=== PATIENT | male | born 1965 | race Caucasian/White ===

== ENCOUNTER 2017-04-29 17:20 | Emergency (ER) | payer OTHER ==
[~2017-04-29] VITALS: Ht 175.3 cm; Wt 88.7 kg
[2017-04-29 17:22] VITALS: TEMP 36.8; Ht 175.3 cm; Wt 88.7 kg
[2017-04-29] MEDS ORDERED: SODIUM CHLORIDE 0.9% 1000ML 1,000 ML IV STA (17:38)
[2017-04-29 18:08] LABS: BASO % 0.3 %; BASO ABS # 0.02 K/uL (0-0.2); COMPLETE YES; EOS % 1.6 %; HEMATOCRIT 45.5 % (42-52); IG% 0.2 %; LYMPH % 28.7 %; LYMPH ABS # 1.77 K/uL (1.2-3.4); MEAN CELL VOLUME 93.4 fL (80-100); MEAN CORPUSCULAR HEMOGLOBIN 31.4 pg (25-34); MEAN CORPUSCULAR HGB CONC 33.6 g/dl (32-36); MEAN PLATELET VOLUME 11.2 fL (7.4-10.4); NEUT % 61.2 %; PLATELET COUNT 221 K/uL (130-400); RED BLOOD COUNT 4.87 M/uL (4.7-6.1); WHITE BLOOD COUNT 6.16 K/uL (4.8-10.8)
[2017-04-29 18:28] LABS: BUN/CREATININE RATIO 15.3 (10-20); CALCIUM 9.2 mg/dl (8.5-10.1); CREATININE 1.1 mg/dl (0.60-1.40); POTASSIUM 3.8 mmol/L (3.5-5.1)
[2017-04-29 18:35] LABS: URINE APPEARANCE CLEAR (CLEAR); URINE BILIRUBIN NEG (NEG); URINE COLOR DK YELLOW; URINE EPITHELIAL CELL AUTO 0-5 /lpf (0-5); URINE NITRITE NEG (NEG); UROBILINOGEN NEG (NEG); ZZUR CULT IF INDIC CLEAN CATCH NO
[2017-04-29 18:36] LABS: MANUAL MICROSCOPIC REQUIRED? NO; REVIEW REQ? NO
[2017-04-29] MEDS ORDERED: SIMV80TA2 PO (18:42)
[2017-04-29] MEDS ORDERED: CETI10TA10 PO (18:42)
[2017-04-29] MEDS ORDERED: FLUT0.15 INH (18:42)
--- NOTE | 2017-04-29 19:24 | DIAGNOSTIC IMAGING REPORT ---
TESTICULAR ULTRASOUND HISTORY: Left groin/scrotum swelling COMPARISON: None. FINDINGS: Right testis: 3.0 x 4.7 x 2.3 cm. There are no intratesticular masses. Normal color flow. No hydrocele. The epididymis is unremarkable. Left testis: 4.8 x 3.2 x 2.2 cm. There are no intratesticular masses. Normal color flow. Trace hydrocele. The epididymis is enlarged and hypervascular. IMPRESSION: 1. Normal bilateral testes. 2. The left epididymis is enlarged and hypervascular compared to the right. This favors a left-sided epididymitis. There is also a trace left hydrocele. Electronically signed by: Hernesto Wilson M.D. 04/29/2017 7:23 PM Dictated Date/Time: 04/29/2017 7:09 PM
--- NOTE | 2017-04-29 20:51 | DIAGNOSTIC IMAGING REPORT ---
ABDOMEN LIMITED (US) CLINICAL HISTORY: Left groin pain. Assess for hernia. COMPARISON STUDY: None. FINDINGS: No evidence for left inguinal hernia. No masses or fluid collections within the left groin. A few small left lymph node identified. IMPRESSION: No evidence for left inguinal hernia. Electronically signed by: Hernesto Wilson M.D. 04/29/2017 8:50 PM Dictated Date/Time: 04/29/2017 8:48 PM
[2017-04-29] MEDS ORDERED: LEVOFLOXACIN 250 MG TAB PO ONE (21:00)
[2017-04-29] MEDS ORDERED: LEVO-366 PO (21:01)
[2017-04-29 21:14] VITALS: BP 141/89; PULSE 75; O2SAT 98
--- NOTE | 2017-04-29 22:09 | EMERGENCY ROOM VISIT NOTE ---
History Report prepared by Nidai: Marah Isidro Under the Supervision of: Dr. Elgin Buckley D.O. First contact with patient: 17:25 Chief Complaint: TESTICULAR PAIN Stated Complaint: SWOLLEN LEFT TESTICLE AND GROIN DISCOMFORT History of Present Illness The patient is a 51 year old male who presents to the Emergency Room with complaints of persistent left testicle swelling starting yesterday evening. When he got home from work yesterday, he noticed that his left testicle was swollen. He did not have any discomfort throughout the day and had not realized that it had swollen. He applied ice which improved the swelling. Today when he returned home from work, he noticed that the swelling was back. He notes that he had similar swelling 20 years ago with varicocele. Today he started having pain in his left groin which he describes as a dull ache. He is also having pain in his left lower back. He notes that he did just start a new job with different chairs which have been causing him some back pain. The pain which started today seems different from this pain. He denies any fever, changes in bowel movement, dysuria, or abdominal pain. His last bowel movement was this afternoon. He notes that he has had 2 inguinal hernias in the past. This pain is different and feels like the pain he had after his hernia surgery and vasectomy. He denies any previous abdominal surgeries. He is sexually active with 1 partner. Source of History: patient Onset: yesterday evening Position: other (left testicle) Quality: other (swelling) Timing: other (persistent) Modifying Factors (Relieving): ice Associated Symptoms: + back pain, No fevers, No abdominal pain, No urinary symptoms Note: Pt reports left groin pain, change in bowel movement. Review of Systems See HPI for pertinent positives & negatives. A total of 10 systems reviewed and were otherwise negative. Past Medical & Surgical Medical Problems: (1) Varicocele Surgical Problems: (1) S/P vasectomy Family History No pertinent family history stated. Social History Smoking Status: Never Smoker Marital Status: Occupation Status: employed Current/Historical Medications Scheduled Levofloxacin (Levaquin), 500 MG PO DAILY Simvastatin (Zocor), 40 MG PO QPM Scheduled PRN Cetirizine Hcl (Zyrtec), 10 MG PO DAILY PRN for Allergy Symptoms Fluticasone Propionate (Nasal) (Flonase Allergy Relief), 2 SPRAYS INH DAILY PRN for Allergy Symptoms Allergies Coded Allergies: Sulfa Antibiotics (Verified Allergy, Intermediate, rash, 04/29/17) Uncoded Allergies: SEASONAL (Adverse Reaction, Unknown, runny nose, 04/29/17) Physical Exam Vital Signs Date Time Temp Pulse Resp B/P (MAP) Pulse Ox O2 Delivery O2 Flow Rate FiO2 04/29/17 21:14 75 18 141/89 98 04/29/17 20:25 78 18 143/93 99 Room Air 04/29/17 18:12 75 18 157/100 98 Room Air 04/29/17 17:22 36.8 88 18 171/111 99 Room Air Physical Exam GENERAL: sitting up in bed, alert, well appearing, well nourished, no distress, non-toxic EYE EXAM: normal conjunctiva OROPHARYNX: no exudate, no erythema, lips, buccal mucosa, and tongue normal and mucous membranes are moist NECK: supple, no nuchal rigidity, no adenopathy, non-tender LUNGS: Clear to auscultation. Normal chest wall mechanics HEART: no murmurs, S1 normal and S2 normal ABDOMEN: abdomen soft, non-tender, normo-active bowel sounds, no masses, no rebound or guarding. BACK: Back is symmetrical on inspection and there is no deformity, no midline tenderness, no CVA tenderness. : Fullness of the left testicle with tenderness on palpation. No masses appreciated in the left inguinal canal. SKIN: no rashes and no bruising UPPER EXTREMITIES: upper extremities are grossly normal. LOWER EXTREMITIES: No pitting edema. NEURO EXAM: Normal sensorium, cranial nerves II-XII grossly intact, normal speech, no gross weakness of arms, no gross weakness of legs. Medical Decision & Procedures ER Provider Diagnostic Interpretation: Radiology results as stated below per my review and the radiologist's interpretation: ABDOMEN LIMITED (US) CLINICAL HISTORY: Left groin pain. Assess for hernia. COMPARISON STUDY: None. FINDINGS: No evidence for left inguinal hernia. No masses or fluid collections within the left groin. A few small left lymph node identified. IMPRESSION: No evidence for left inguinal hernia. Electronically signed by: Hernesto Wilson M.D. 04/29/2017 8:50 PM Dictated Date/Time: 04/29/2017 8:48 PM TESTICULAR ULTRASOUND HISTORY: Left groin/scrotum swelling COMPARISON: None. FINDINGS: Right testis: 3.0 x 4.7 x 2.3 cm. There are no intratesticular masses. Normal color flow. No hydrocele. The epididymis is unremarkable. Left testis: 4.8 x 3.2 x 2.2 cm. There are no intratesticular masses. Normal color flow. Trace hydrocele. The epididymis is enlarged and hypervascular. IMPRESSION: 1. Normal bilateral testes. 2. The left epididymis is enlarged and hypervascular compared to the right. This favors a left-sided epididymitis. There is also a trace left hydrocele. Electronically signed by: Hernesto Wilson M.D. 04/29/2017 7:23 PM Dictated Date/Time: 04/29/2017 7:09 PM Laboratory Results 04/29/17 17:55 Red Blood Count 4.87, Mean Corpuscular Volume 93.4, Mean Corpuscular Hemoglobin 31.4, Mean Corpuscular Hemoglobin Concent 33.6, Mean Platelet Volume 11.2, Neutrophils (%) (Auto) 61.2, Lymphocytes (%) (Auto) 28.7, Monocytes (%) (Auto) 8.0, Eosinophils (%) (Auto) 1.6, Basophils (%) (Auto) 0.3, Neutrophils # (Auto) 3.77, Lymphocytes # (Auto) 1.77, Monocytes # (Auto) 0.49, Eosinophils # (Auto) 0.10, Basophils # (Auto) 0.02 04/29/17 17:55 Test 04/29/17 17:55 04/29/17 18:20 White Blood Count 6.16 K/uL (4.8-10.8) Red Blood Count 4.87 M/uL (4.7-6.1) Hemoglobin 15.3 g/dL (14.0-18.0) Hematocrit 45.5 % (42-52) Mean Corpuscular Volume 93.4 fL (80-100) Mean Corpuscular Hemoglobin 31.4 pg (25-34) Mean Corpuscular Hemoglobin Concent 33.6 g/dl (32-36) Platelet Count 221 K/uL (130-400) Mean Platelet Volume 11.2 fL (7.4-10.4) Neutrophils (%) (Auto) 61.2 % Lymphocytes (%) (Auto) 28.7 % Monocytes (%) (Auto) 8.0 % Eosinophils (%) (Auto) 1.6 % Basophils (%) (Auto) 0.3 % Neutrophils # (Auto) 3.77 K/uL (1.4-6.5) Lymphocytes # (Auto) 1.77 K/uL (1.2-3.4) Monocytes # (Auto) 0.49 K/uL (0.11-0.59) Eosinophils # (Auto) 0.10 K/uL (0-0.5) Basophils # (Auto) 0.02 K/uL (0-0.2) RDW Standard Deviation 42.7 fL (36.4-46.3) RDW Coefficient of Variation 12.5 % (11.5-14.5) Immature Granulocyte % (Auto) 0.2 % Immature Granulocyte # (Auto) 0.01 K/uL (0.00-0.02) Anion Gap 5.0 mmol/L (3-11) Est Creatinine Clear Calc Drug Dose 85.6 ml/min Estimated GFR () 88.4 Estimated GFR (Non- 76.2 BUN/Creatinine Ratio 15.3 (10-20) Lactic Acid Level 0.8 mmol/L (0.4-2.0) Calcium Level 9.2 mg/dl (8.5-10.1) Total Bilirubin 0.6 mg/dl (0.2-1) Direct Bilirubin 0.2 mg/dl (0-0.2) Aspartate Amino Transf (AST/SGOT) 15 U/L (15-37) Alanine Aminotransferase (ALT/SGPT) 24 U/L (12-78) Alkaline Phosphatase 67 U/L (45-117) Total Protein 7.8 gm/dl (6.4-8.2) Albumin 4.3 gm/dl (3.4-5.0) Lipase 147 U/L (73-393) Urine Color DK YELLOW Urine Appearance CLEAR (CLEAR) Urine pH 5.0 (4.5-7.5) Urine Specific Hughson 1.030 (1.000-1.030) Urine Protein NEG (NEG) Urine Glucose (UA) NEG (NEG) Urine Ketones TRACE (NEG) Urine Occult Blood NEG (NEG) Urine Nitrite NEG (NEG) Urine Bilirubin NEG (NEG) Urine Urobilinogen NEG (NEG) Urine Leukocyte Esterase NEG (NEG) Urine WBC (Auto) 1-5 /hpf (0-5) Urine RBC (Auto) 0-4 /hpf (0-4) Urine Hyaline Casts (Auto) 0 /lpf (0-5) Urine Epithelial Cells (Auto) 0-5 /lpf (0-5) Urine Bacteria (Auto) NEG (NEG) Laboratory results per my review. Medications Administered Medications (Trade) Dose Ordered Sig/Jorje Route Start Time Stop Time Status Last Admin Dose Admin Sodium Chloride 1,000 ml @ 999 mls/hr Q1H1M STAT IV 04/29/17 17:38 04/29/17 18:38 DC 04/29/17 18:10 999 MLS/HR Levofloxacin (Levaquin Tab) 500 mg NOW ONCE PO 04/29/17 21:00 04/29/17 21:01 DC 04/29/17 21:06 500 MG ED Course ED COURSE: Vital signs were reviewed and showed hypertension. The patients medical record was reviewed The above diagnostic studies were performed and reviewed. ED treatments and interventions as stated above. 1731: The patient was evaluated in room B10. A complete history and physical examination was performed. 1738: NSS 1000 ml @ 999 mls/hr IV. 1952: I reevaluated the patient. I updated him. 2100: Levofloxacin 500 mg PO. 2100: Upon reevaluation, the patient is resting comfortably. I discussed my findings with the patient and he understands and agrees with the treatment plan. Based on the patients age, coexisting illnesses, exam and lab findings the decision to treat as an outpatient was made. The patient remained stable while under my care. The patient appeared well at the time of discharge. Medical Decision Differential diagnoses includes but is not limited to gastritis, peptic ulcer disease, GERD, gallbladder disease, pancreatitis, small bowel obstruction, acute coronary syndrome, pericarditis, ischemic bowel, irritable bowel disease, irritable bowel syndrome, appendicitis, diverticulitis, malignancy, hernia, urinary tract infection, torsion, perforation, trauma, infectious. Patient is a 51-year-old male that presents to ER for left testicle pain. This has been coming going for the past 2 days. No fevers. Sexual active with one partner. On exam no signs of torsion. Left testicle is slightly tender. No hernia. Vitals signs are unremarkable. CBC all BMP, LFTs, bilirubin and lipase is unremarkable. Lactic acid was normal. Ultrasound of the left testicle supports epididymitis. Pain improves with elevation and support. No hernia seen on ultrasound. Patient was given dose of Levaquin. He was discharged follow-up with PCP. Discussed with Pt concerning signs and symptoms to watch out for. Pt was instructed to follow up with their PCP and discussed with the patient their option to return to the ED at anytime for persistent or worsening symptoms. The appropriate anticipatory guidance and out-patient management, including indications for return to the emergency department, were explained at length to the patient and understood. Medication Reconcilliation Current Medication List: was personally reviewed by me Blood Pressure Screening Patient's blood pressure: Elevated blood pressure Blood pressure disposition: Elevated BP felt to be situational Impression Primary Impression: Epididymitis Scribe Attestation The scribe's documentation has been prepared under my direction and personally reviewed by me in its entirety. I confirm that the note above accurately reflects all work, treatment, procedures, and medical decision making performed by me. Departure Information Dispostion Home / Self-Care Prescriptions Levofloxacin (Levaquin) 500 Mg Tab 500 MG PO DAILY for 9 Days, TAB Prov: Elgin Buckley, DO 04/29/17 Referrals Elva Crouch C.R.NTanPTan (PCP) Forms HOME CARE DOCUMENTATION FORM, IMPORTANT VISIT INFORMATION, WORK / SCHOOL INSTRUCTIONS Patient Instructions Epididymitis Yevgeniy, My [facility] Additional Instructions Please follow up with your primary care doctor with in the next 24 hours. Any worsening of your symptoms, please return to the ED immediately. This includes any fevers greater than 100.4, worsening pain, persistent nausea, vomiting, unable to eat or drink, or any other concerning signs or symptoms from your standpoint. Please take your antibiotics as prescribed.
--- NOTE | 2017-04-30 13:34 | Pharmacy Progress Note ---
ED Pharmacist Progress Note Date of Service: Apr 30, 2017. 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 Counseled that the prescription was printed last night and to check paperwork for printed prescription. Provided ED phone number if further questions arise.
== END 2017-04-29 21:15 | disposition home or self-care (01) ==
LOC: C.EDB 17:47
DX: N45.1 Epididymitis (principal); Z98.52 Vasectomy status; Z79.899 Other long term (current) drug therapy